=== PATIENT | female | born 1945 | race Two or more races ===

== ENCOUNTER 2019-09-08 21:23 | Inpatient (IN) | payer MEDICARE, OTHER ==
[~2019-09-08] VITALS: Ht 157.5 cm; Wt 56.9 kg
--- NOTE | 2019-09-08 21:25 | NUR ---
PT MAGAN FROM [facility] SENT BY PMD FOR ABN LABS ELEVATED BUN-62, CREATININE-4.06. NAD NOTED. RESP EVEN AND UNLABORED. PT ON MONITOR IN BED 4. WILL CONTINUE TO MONITOR.
--- NOTE | 2019-09-08 21:58 | NUR ---
BLOOD DRAWN AND GIVEN TO PHLEB
[2019-09-08] MEDS ORDERED: IV NS 0.9% 500 ML BAG IV ONE (22:00)
[2019-09-08 22:03] LABS: EOSINOPHILS % (AUTO) 5.2 % (0.0-6.0); HEMATOCRIT 45 % (33-45); HEMOGLOBIN 14.7 g/dL (11.5-14.8); LYMPHOCYTES # (AUTO) 1.1 /CMM (0.8-4.8); LYMPHOCYTES % (AUTO) 25.4 % (20.0-44.0); MEAN CORPUSCULAR HGB CONC 33 g/dl (31.0-36.0); MEAN CORPUSCULAR VOLUME 94 fL (82-100); MONOCYTES # (AUTO) 0.5 /CMM (0.1-1.30); MONOCYTES % (AUTO) 11.7 % (2.0-12.0); NEUTROPHILS # (AUTO) 2.4 /CMM (1.8-8.9); NEUTROPHILS % (AUTO) 56.7 % (43.0-81.0); PLATELET COUNT (AUTO) 209 /CMM (150-450); RED BLOOD CELL COUNT(AUTO) 4.77 MIL/uL (4.0-5.2); WHITE BLOOD COUNT (AUTO) 4.3 K/uL (4.3-11.0)
--- NOTE | 2019-09-08 22:10 | NUR ---
RADIOLOGY AT BEDSIDE FOR XRAY
[2019-09-08 22:18] LABS: ALANINE AMINOTRANSFERASE 11 U/L (12-78); ALBUMIN 2.8 g/dL (3.4-5.0); ALKALINE PHOSPHATASE 77 U/L (46-116); ASPARTATE AMINOTRANSFERASE 17 U/L (15-37); BILIRUBIN,DIRECT 0.1 mg/dL (0.0-0.2); BILIRUBIN,TOTAL 0.4 mg/dL (0.2-1.0); CALCIUM, SERUM 9.9 mg/dL (8.5-10.1); CARBON DIOXIDE 26 mmol/L (21-32); CHLORIDE 107 mmol/L (98-107); CREATININE 4.3 mg/dL (0.6-1.3); GLUCOSE 173 mg/dL (74-106); LIPASE 312 U/L (73-393); POTASSIUM 3.3 mmol/L (3.5-5.1); SODIUM SERUM 146 mmol/L (136-145); TOTAL PROTEIN, SERUM 7.4 g/dL (6.4-8.2); UREA NITROGEN, BLOOD 63 mg/dL (7-18)
--- NOTE | 2019-09-08 22:43 | NUR ---
CALLED SUP FOR MS BED
--- NOTE | 2019-09-08 23:19 | NUR ---
REPORT GIVEN TO SEVEN ANNA FOR ELIANE
[2019-09-08 23:45] VITALS: BP 204/90
--- NOTE | 2019-09-08 23:45 | NUR ---
MS RN NOTES PATIENT RECEIVED FROM ER, VIA HOSPITAL PROTOCOL IN [facility]. PATIENT ALERT AND ORIENTED X 1, MAINLY MACEDONIAN SPEAKING. ON ROOM AIR, NO SIGNS OF SHORTNESS OF BREATH, AND WITH EVEN NON-LABORED BREATHING. PATIENT ON MANAGER BOOKS, SINUS BRADYCARDIA, 58-60'S. PATIENT IV ACCESS INTACT ON LEFT AC, GAUGE 20, DRY, INTACT AND PATENT. PATIENT SKIN DRY, WITH SACRAL REDNESS AND RIGHT LOWER LEG DISCOLORATION. PROVIDED COMFORT MEASURES TO PATIENT. SAFETY PRECAUTIONS IN PLACE WITH BED IN THE LOWEST POSITION, BED LOCKED, BED ALARM ON, BILATERAL SIDE RAILS UP, AND CALL LIGHT WITHIN EASY REACH. WILL CONTINUE TO MONITOR PATIENT.
[2019-09-09] VITALS (7 sets, daily range): BP systolic 139–188; BP diastolic 62–92
[2019-09-09] MEDS ORDERED: ONDANSETRON HCL/PF 4 MG/2 ML VIAL IVP PRN
[2019-09-09] MEDS ORDERED: MAGNESIUM HYDROXIDE 30 ML UDC PO PRN
[2019-09-09] MEDS ORDERED: ZOLPIDEM TARTRATE 5 MG TABLET PO PRN
[2019-09-09] MEDS ORDERED: ACETAMINOPHEN 325 MG TABLET PO PRN
[2019-09-09] MEDS ORDERED: MAG HYDROX/AL HYDROX/SIMETH 30 ML UDC PO PRN
[2019-09-09] MEDS ORDERED: Z GUARD REMEDY 2 OZ OINT TP PRN
[2019-09-09] MEDS: hydrALAZINE HCL IV 20 MG VIAL IV PRN ×2 (00:53→05:46)
--- NOTE | 2019-09-09 00:53 | NUR ---
RN NOTES PT. BLOOD PRESSURE IS 214/98- HYDRALAZINE 10MG IV GIVEN ORDERED
--- NOTE | 2019-09-09 04:30 | NUR ---
RN NOTES K-3.3- MD IS AWARE
[2019-09-09] MEDS ORDERED: DEXT15DR6 EACHEYE (04:41)
[2019-09-09] MEDS ORDERED: EPOE1VIA7 SQ (04:45)
[2019-09-09] MEDS ORDERED: EPOE1VIA7 IJ (04:45)
[2019-09-09] MEDS ORDERED: HYDR-4076 PO (04:49)
[2019-09-09] MEDS ORDERED: FAMO-131 PO (04:50)
[2019-09-09] MEDS ORDERED: VIT1TABL46 PO (04:51)
[2019-09-09] MEDS ORDERED: ACET-2605 PO ×2 (04:52→04:54)
[2019-09-09] MEDS ORDERED: ACET1TAB12 PO (04:56)
[2019-09-09] MEDS ORDERED: CRAN3875 PO (04:57)
[2019-09-09] MEDS ORDERED: ONDA4TAB5 PO (04:58)
[2019-09-09] MEDS ORDERED: OMEG1CAP PO (05:00)
[2019-09-09] MEDS ORDERED: ACET325T53 PO (05:05)
[2019-09-09] MEDS ORDERED: LATA2.5D7 EACHEYE (05:08)
[2019-09-09] MEDS ORDERED: CRAN400C PO (05:09)
--- NOTE | 2019-09-09 05:46 | NUR ---
RN NOTES PT. BLOOD PRESSURE STILL HIGH 192/92 - HYDRALAZINE 10MG IV GIVEN ORDERE
[2019-09-09 06:28] LABS: BASOPHILS % (AUTO) 0.6 % (0.0-2.0); EOSINOPHILS % (AUTO) 4.9 % (0.0-6.0); HEMATOCRIT 46 % (33-45); HEMOGLOBIN 14.7 g/dL (11.5-14.8); LYMPHOCYTES % (AUTO) 20.6 % (20.0-44.0); MEAN CORPUSCULAR HGB CONC 32 g/dl (31.0-36.0); MEAN CORPUSCULAR VOLUME 94 fL (82-100); MONOCYTES # (AUTO) 0.6 /CMM (0.1-1.30); MONOCYTES % (AUTO) 13.2 % (2.0-12.0); NEUTROPHILS # (AUTO) 2.8 /CMM (1.8-8.9); NEUTROPHILS % (AUTO) 60.7 % (43.0-81.0); PLATELET COUNT (AUTO) 199 /CMM (150-450); RED BLOOD CELL COUNT(AUTO) 4.84 MIL/uL (4.0-5.2); WHITE BLOOD COUNT (AUTO) 4.6 K/uL (4.3-11.0)
--- NOTE | 2019-09-09 06:30 | NUR ---
MS RN NOTES PATIENT IN BED RESTING. EASILY AWAKEN BY LIGHT TOUCH AND NAME. ALERT AND ORIENTED X 1. PATIENT ON TRACTOR OPERATOR, WITH NORMAL SINUS RHYTHM, 80S. PATIENT ON ROOM AIR, NO SIGNS OF RESPIRATORY DEPRESSION, NO SIGNS OF SOB, WITH EVEN NON-LABORED BREATHING. PATIENT IV ACCESS IN PLACE, PATENT, DRY AND INTACT. SKIN KEPT CLEAN AND DRY. PROVIDED COMFORT MEASURES TO THE PATIENT. SAFETY PRECAUTIONS IN PLACE WITH BED IN THE LOWEST POSITION, BED ALARM ON, BED LOCKED, BILATERAL SIDE RAILS UP, AND CALL LIGHT WITHIN EASY REACH. WILL ENDORSE ELIANE TO UPCOMING AM NURSE.
[2019-09-09 06:48] LABS: CALCIUM, SERUM 9.9 mg/dL (8.5-10.1); CARBON DIOXIDE 25 mmol/L (21-32); CHLORIDE 110 mmol/L (98-107); CREATININE 4.1 mg/dL (0.6-1.3); GLUCOSE 117 mg/dL (74-106); MAGNESIUM 2.7 mg/dL (1.8-2.4); PHOSPHORUS 4.7 mg/dL (2.5-4.9); POTASSIUM 3.3 mmol/L (3.5-5.1); SODIUM SERUM 145 mmol/L (136-145); UREA NITROGEN, BLOOD 60 mg/dL (7-18)
[2019-09-09] MEDS ORDERED: POLY15DR40 EACHEYE (07:32)
--- NOTE | 2019-09-09 08:01 | NUR ---
RN NOTES RECEIVED PATIENT IN THE BED A/A/O X1/2 IRAQI SPEAKER, REFUSED PAIN, V/S TAKEN BP 188/62, P-74, PATIENT TELE SR-82/83, REFUSED PAIN, NO ACUTE RESPIRATORY DISTRESS, IV ACCESS ON LEFT AC AREA INFUSING 1/2 NS AT 75 ML/HR INTACT, CALL LIGHT WITHIN TO REACH, ASSIST TURN AND REPOSTION Q 2 HR. SAFETY PRECAUTION MAINTAINED ALL THE TIME.
[2019-09-09 08:30] LABS: CHOLESTEROL 181 mg/dL (<200); HDL CHOLESTEROL 43 mg/dL (40-60); LDL 130 mg/dL (0-99); THYROID STIMULATING HORMONE 1.527 uIU/mL (0.358-3.74); TRIGLYCERIDES 84 mg/dL (30-150)
--- NOTE | 2019-09-09 09:26 | NUR ---
rn notes administered zofran 4 mg/ml iv push for nausea and vomiting.
[2019-09-09] MEDS: PANTOPRAZOLE 40 MG TABLET.DR PO SCH (09:32)
--- NOTE | 2019-09-09 11:57 | NUR ---
rn notes patient in the bed. medication were administered for nausea effective, seen by hospitalist.
--- NOTE | 2019-09-09 12:27 | NUR ---
RN NOTE D/C TELE TO MED SURGE PER CEMENT [facility] [address] Dr ARSHAD.
--- NOTE | 2019-09-09 18:00 | NUR ---
RN NOTES UNABLE TO COLLECT URINE AT THIS TIME, PATIENT TOLERATED DINNER WITH ASSIST OF PROCESS WORKER 40%. INFUSING 1/2 NS AT 75 ML/HR INTACT ON LEFT AC AREA., ASSIST TURN AND REPOSTION Q 2 HR, CALL LIGHT WITHIN TO REACH, ENDORSED ONCOMING NURSE FOLLOW PLAN OF CARE.
--- NOTE | 2019-09-09 20:17 | NUR ---
MS RN NOTES PATIENT RECEIVED IN BED LAYING COMFORTABLY, ALERT AND ORIENTED X 1-2, PATIENT MAINLY JAPANESE SPEAKING. ACCOMPANIED BY DAUGHTER AT BEDSIDE, TALISHA. PATIENT ON ROOM AIR, NO SIGNS OF SOB PRESENT, NO SIGNS OF RESPIRATORY DISTRESS, AND WITH EVEN NON-LABORED BREATHING. PATIENT SKIN DRY, WARM, AND INTACT. IV ACCESS ON LEFT AC, 20 GAUGE. PROVIDED COMFORT MEASURES TO PATIENT . SAFETY PRECAUTIONS IN PLACE WITH BED IN THE LOWEST POSITION, BED ALARM ON, BED LOCKED, BILATERAL SIDE RAILS UP, AND CALL LIGHT WITHIN EASY REACH. WILL CONTINUE TO MONITOR PATIENT.
[2019-09-10] MEDS: IV 1/2NS 1000 ML 1,000 ML IV PRN (00:01)
--- NOTE | 2019-09-10 06:18 | NUR ---
MS RN NOTES PATIENT IN BED SLEEPING, AWAKEN BY LIGHT TOUCH AND BY NAME. PATIENT ALERT AND ORIENTED X 1-2. MAINLY JAPANESE SPEAKING. PATIENT ON ROOM AIR WITH NO SIGNS OF RESPIRATORY DEPRESSION PRESENT, NO SHORTNESS OF BREATH, AND EVEN NON-LABORED BREATHING. PATIENT IV ACCESS IN PLACE, INTACT AND PATENT ON LEFT AC 20 GAUGE. PATIENT COMPLAINS AND PRESENTS NO SIGNS OF NO DISCOMFORT OR PAIN. PROVIDED COMFORT MEASURES TO PATIENT. SAFETY PRECAUTIONS IN PLACE WITH THE BED IN THE LOWEST POSITION, BED ALARM ON, BED LOCKED, BILATERAL SIDE RAILS UP, AND CALL LIGHT WITHIN EASY REACH AND REINFORCED TEACHING ON USING CALL LIGHT WHEN IN NEED OF ASSISTANCE. WILL ENDORSE ELIANE TO UPCOMING AM NURSE.
[2019-09-10 06:46] LABS: BASOPHILS % (AUTO) 0.5 % (0.0-2.0); EOSINOPHILS % (AUTO) 3.9 % (0.0-6.0); HEMATOCRIT 43 % (33-45); HEMOGLOBIN 13.8 g/dL (11.5-14.8); LYMPHOCYTES # (AUTO) 1.2 /CMM (0.8-4.8); LYMPHOCYTES % (AUTO) 23.5 % (20.0-44.0); MEAN CORPUSCULAR HGB CONC 32 g/dl (31.0-36.0); MEAN CORPUSCULAR VOLUME 93 fL (82-100); MONOCYTES # (AUTO) 0.5 /CMM (0.1-1.30); MONOCYTES % (AUTO) 9.8 % (2.0-12.0); NEUTROPHILS # (AUTO) 3.3 /CMM (1.8-8.9); NEUTROPHILS % (AUTO) 62.3 % (43.0-81.0); PLATELET COUNT (AUTO) 191 /CMM (150-450); RED BLOOD CELL COUNT(AUTO) 4.56 MIL/uL (4.0-5.2); WHITE BLOOD COUNT (AUTO) 5.2 K/uL (4.3-11.0)
[2019-09-10 07:14] LABS: CALCIUM, SERUM 9.5 mg/dL (8.5-10.1); CARBON DIOXIDE 23 mmol/L (21-32); CHLORIDE 105 mmol/L (98-107); CREATININE 3.9 mg/dL (0.6-1.3); GLUCOSE 101 mg/dL (74-106); MAGNESIUM 2.4 mg/dL (1.8-2.4); PHOSPHORUS 4.9 mg/dL (2.5-4.9); POTASSIUM 3.4 mmol/L (3.5-5.1); SODIUM SERUM 140 mmol/L (136-145); UREA NITROGEN, BLOOD 63 mg/dL (7-18)
--- NOTE | 2019-09-10 07:20 | NUR ---
M/S RN NOTES PATIENT RESTING IN BED, NO RESPIRATORY DISTRESS, NO C/O PAIN AT THIS TIME. PATIENT'S SKIN WARM TO TOUCH, IV ACCESS SITE INTACT AND PATENT ON THE LAC #20G, 1/2 NS INFUSING AT 75ML/HR. PATIENT'S NEEDS ATTENDED, BED ON LOWEST LOCKED POSITION, CALL LIGHT WITHIN REACH. WILL CONTINUE TO MONITOR.
[2019-09-10 07:53] LABS: CREATINE KINASE, TOTAL 31 U/L (26-192)
[2019-09-10 08:00] VITALS: BP 172/91
[2019-09-10] MEDS: PANTOPRAZOLE 40 MG TABLET.DR PO SCH (08:10)
[2019-09-10] MEDS: hydrALAZINE HCL IV 20 MG VIAL IV PRN ×3 (08:11→17:14)
[2019-09-10] MEDS: HYDROCODONE/APAP 5/325MG 1 EACH TABLET PO PRN (15:38)
[2019-09-10 16:00] VITALS: BP 182/95
--- NOTE | 2019-09-10 19:30 | NUR ---
MS RN OPENING NOTE RECEIVED PATIENT IN BED. A/O X1. TOLERATING ROOM AIR. RESPIRATIONS ARE EVEN AND UNLABORED. NO S/S SOB NOTED. NO S/S OF MANIFESTATIONS OF PAIN AT THIS TIME. IN NO APPARENT DISTRESS. IV ACCESS IN RFA#22 PATENT AND SALINE LOCKED. IVF ORDERED BUT NOT CONNECTED D/T ELEVATED BP. WILL REASSESS. BED IS LOW AND LOCKED, HOB ELEVATED IN SEMI FOWLERS, SIDE RIALS UPX2. BED ALARM ON. CALL LIGHT WITHIN REACH. FAMILY AT BEDSIDE. WILL CONTINUE TO MONITOR.
[2019-09-10 20:00] VITALS: BP_SYST 156; BP_DIAS 95; BP_DIAS 98
--- NOTE | 2019-09-10 20:25 | NUR ---
MS RN NOTE CALLED DR. REYNOSO TO COMPLETE MED RECON. WILL CONTINUE TO MONITOR.
[2019-09-11] MEDS: hydrALAZINE HCL IV 20 MG VIAL IV PRN ×2 (05:55→10:36)
--- NOTE | 2019-09-11 05:55 | NUR ---
MS RN NOTE ADMINISTERED PRN HYDRALAZINE 25MG FOR BP 192/110 HR 78. WILL CONTINUE TO MONITOR
--- NOTE | 2019-09-11 06:12 | NUR ---
MS RN CLOSING NOTE PATIENT IN BED. A/O X1. TOLERATING ROOM AIR. RESPIRATIONS ARE EVEN AND UNLABORED. NO SOB NOTED. NO MANIFESTATIONS OF PAIN THROUGHOUT SHIFT. NO DISTRESS NOTED. IV ACCESS MAINTAINED IN RFA#22 PATENT AND SALINE LOCKED. IVF NOT CONNECTED THROUGHOUT SHIFT. ADMINISTERED PRN HYDRALAZINE 25 MG FOR BP 190S/110S. BED REMAINS LOW AND LOCKED, HOB ELEVATED IN SEMI FOWLERS, SIDE RIALS UPX2. BED ALARM ON. CALL LIGHT WITHIN REACH. WILL ENDORSE TO NEXT SHIFT
[2019-09-11 06:51] LABS: BASOPHILS % (AUTO) 0.4 % (0.0-2.0); EOSINOPHILS % (AUTO) 0.9 % (0.0-6.0); HEMATOCRIT 47 % (33-45); HEMOGLOBIN 15.1 g/dL (11.5-14.8); LYMPHOCYTES # (AUTO) 0.8 /CMM (0.8-4.8); LYMPHOCYTES % (AUTO) 12.6 % (20.0-44.0); MEAN CORPUSCULAR HGB CONC 32 g/dl (31.0-36.0); MEAN CORPUSCULAR VOLUME 95 fL (82-100); MONOCYTES # (AUTO) 0.6 /CMM (0.1-1.30); MONOCYTES % (AUTO) 8.5 % (2.0-12.0); NEUTROPHILS % (AUTO) 77.6 % (43.0-81.0); PLATELET COUNT (AUTO) 215 /CMM (150-450); RED BLOOD CELL COUNT(AUTO) 4.98 MIL/uL (4.0-5.2); WHITE BLOOD COUNT (AUTO) 6.5 K/uL (4.3-11.0)
[2019-09-11 07:00] LABS: ALANINE AMINOTRANSFERASE 9 U/L (12-78); ALBUMIN 2.7 g/dL (3.4-5.0); ALKALINE PHOSPHATASE 69 U/L (46-116); ASPARTATE AMINOTRANSFERASE 19 U/L (15-37); BILIRUBIN,TOTAL 0.4 mg/dL (0.2-1.0); CALCIUM, SERUM 10.1 mg/dL (8.5-10.1); CARBON DIOXIDE 22 mmol/L (21-32); CHLORIDE 104 mmol/L (98-107); CREATININE 3.8 mg/dL (0.6-1.3); GLUCOSE 109 mg/dL (74-106); MAGNESIUM 2.2 mg/dL (1.8-2.4); PHOSPHORUS 5.7 mg/dL (2.5-4.9); POTASSIUM 3.3 mmol/L (3.5-5.1); SODIUM SERUM 139 mmol/L (136-145); TOTAL PROTEIN, SERUM 7.5 g/dL (6.4-8.2); UREA NITROGEN, BLOOD 64 mg/dL (7-18)
[2019-09-11 07:03] LABS: CREATINE KINASE, TOTAL 46 U/L (26-192)
[2019-09-11 08:00] VITALS: BP 172/92
--- NOTE | 2019-09-11 08:00 | NUR ---
MS RN OPENING NOTES RECEIVED PATIENT IN BED. A/O X1 ONLY TO SELF. UNABLE TO ANSWER ANY QUESTIONS. SHE DOES NOT SPEAK TO ME. PT IS SY[place] SPEAKING ONLY. BUT MOSTLY NON VERBAL. NO CARDIAC OR RESP DISTRESS NOTED. TOLERATING ROOM AIR. RESPIRATIONS ARE EVEN AND UNLABORED. NO S/S SOB NOTED. NO S/SX OF PAIN OR DISCOMFORT. IN NO APPARENT DISTRESS. IV ACCESS IN RFA#22 PATENT AND SALINE LOCKED. IVF ORDERED BUT NOT CONNECTED D/T ELEVATED BP. CHECKED BP AT 8AM. 170/92. WILL REASSESS AND RECHECK MANUALLY. PER NIGHT NURSE, HYDRALAZINE WAS GIVEN AROUND 7AM. WILL RECHECK BP LATER. SAFETY PRECAUTIONS IN PLACE. BED IS LOW AND LOCKED, HOB ELEVATED IN SEMI FOWLERS, SIDE RIALS UPX2. BED ALARM ON. CALL LIGHT WITHIN REACH. FAMILY AT BEDSIDE. WILL CONTINUE TO MONITOR.
[2019-09-11 08:07] LABS: PTH, INTACT 102 pg/mL (15-65)
[2019-09-11] MEDS: PANTOPRAZOLE 40 MG TABLET.DR PO SCH (08:14)
--- NOTE | 2019-09-11 09:30 | NUR ---
NOTIFIED RE: K+ LEVELS NOTIFIED DR. ADAIR RE: K+ LEVEL 3.3. KDUR 40MEQ ORDERED. NOTED AND CARRIED OUT.
--- NOTE | 2019-09-11 09:45 | NUR ---
RECHECKED BP RECHECKED BP MANUALLY. NOTED TO BE 169/82. IMPROVED FROM JULIETTE BALTAZAR
--- NOTE | 2019-09-11 10:30 | NUR ---
RECHECKED BP 168/88 HYDRALAZINE 25MG IVP ADMINISTERED.
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
[2019-09-11] MEDS ORDERED: POTASSIUM CHLORIDE 20 MEQ TAB.PRT.SR PO ONE (11:00)
[2019-09-11 11:23] VITALS: BP 168/88
[2019-09-11 12:19] LABS: APPEARANCE,URINE CLEAR (CLEAR); BILIRUBIN,URINE NEGATIVE (NEGATIVE); BLOOD, URINE NEGATIVE Ery/uL (NEGATIVE); COLOR,URINE YELLOW (YELLOW); KETONES,URINE NEGATIVE (NEGATIVE); LEUKOCYTE ESTERASE ,URINE NEGATIVE (NEGATIVE); NITRITE, URINE NEGATIVE (NEGATIVE); PROTEIN,URINE 100 mg/dl (NEGATIVE); UGLUCOSE 100 MG/DL mg/dL (NEGATIVE); UROBILINOGEN,URINE 0.2 EU/dL (0.2)
[2019-09-11 12:27] LABS: RBC,URINE NONE SEEN /HPF (0-2); WBC,URINE 0-2 /HPF (0-3)
[2019-09-11 12:28] LABS: BACTERIA,URINE Rare /HPF (None Seen); SQUAMOUS EPITHELIAL CELL,UR Few /HPF (None Seen)
[2019-09-11 12:44] LABS: EOSINOPHIL,URINE None Seen
[2019-09-11 13:04] LABS: CREATININE, URINE 46.4 MG/DL (30.0-125.0); URINE TOTAL PROTEIN 159.6 mg/dL (0-11.9)
[2019-09-11 16:04] VITALS: BP 150/84
[2019-09-11] MEDS: hydrALAZINE HCL 25 MG TABLET PO SCH (16:33)
--- NOTE | 2019-09-11 17:29 | NUR ---
S/P CT OF HEAD W/O CONTRAST PT CAME BACK TO UNIT S/P CT OF HEAD WITHOUT CONTRASST
--- NOTE | 2019-09-11 17:45 | NUR ---
MS RN CLOSING NOTES PATIENT IN BED. A/O X1 ONLY TO SELF. PT IS NON VERBAL. BUT MOSTLY NON VERBAL. NO CARDIAC OR RESP DISTRESS NOTED. TOLERATING ROOM AIR. RESPIRATIONS ARE EVEN AND UNLABORED. NO S/S SOB NOTED. NO S/SX OF PAIN OR DISCOMFORT. IN NO APPARENT DISTRESS. PT BP CONTINOUSLY MONITORED THROUGHOUT THIS SSHIFT. LAST BP TAKEN AROUND 530 WASS 150/84. IMPROVING AND MUCH BETTER. PO HYDRALAZINE ADMINISTERED. IV ACCESS IN RFA#22 PATENT AND SALINE LOCKED. PT ALSO WENT FOR CT OF HEAD WITHOUT CONTRAST AWAITING FOR RESULTS. SAFETY PRECAUTIONS IN PLACE. BED IS LOW AND LOCKED, HOB ELEVATED IN SEMI FOWLERS, SIDE RIALS UPX2. BED ALARM ON. CALL LIGHT WITHIN REACH. FAMILY AT BEDSIDE. WILL CONTINUE TO MONITOR.
--- NOTE | 2019-09-11 18:15 | NUR ---
CT OF HEAD RESULT RECEIVED CALL FROM RADIOLOGY REGARDING CT OF HEAD RESULTS. NOTIED DR BEVERLEY ADAIR.
--- NOTE | 2019-09-11 18:26 | NUR ---
AWARE OF CT OF HEAD RESULTS DR ADAIR AWARE.
--- NOTE | 2019-09-11 19:30 | NUR ---
MS RN OPENING NOTE RECEIVED PATIENT IN BED. A/O X1. TOLERATING ROOM AIR. RESPIRATIONS ARE EVEN AND UNLABORED. NO S/S SOB NOTED. NO S/S OF MANIFESTATIONS OF PAIN AT THIS TIME. IN NO APPARENT DISTRESS. IV ACCESS IN RFA#22 RUNNING 1/2 NS@75ML/HR. BED IS LOW AND LOCKED, HOB ELEVATED IN SEMI FOWLERS, SIDE RIALS UPX2. BED ALARM ON. CALL LIGHT WITHIN REACH. FAMILY AT BEDSIDE. WILL CONTINUE TO MONITOR.
[2019-09-11 20:00] VITALS: BP 149/80
[2019-09-11] MEDS ORDERED: LATANOPROST EYE DROP 0.005% 2.5 ML BOTTLE EACHEYE SCH (22:00)
[2019-09-11] MEDS: IV 1/2NS 1000 ML 1,000 ML IV PRN (22:01)
[2019-09-12] MEDS: hydrALAZINE HCL IV 20 MG VIAL IV PRN ×2 (04:09→11:23)
--- NOTE | 2019-09-12 04:10 | NUR ---
MS RN NOTE ADMINISTERED PRN APRESOLINE 25MG FOR BP 185/105 HR 92. WILL CONTINUE TO MONITOR.
--- NOTE | 2019-09-12 06:14 | NUR ---
MS SEVEN DOUGLAS NOTE PATIENT IN BED. A/O X1. REMAINS TOLERATING ROOM AIR. RESPIRATIONS ARE EVEN AND UNLABORED. NO SOB NOTED. NO MANIFESTATIONS OF PAIN THROUGHOUT SHIFT. NO DISTRESS NOTED. IV ACCESS MAINTAINED IN RFA#22 RUNNING 1/2 NS@75ML/HR. BED IS LOW AND LOCKED, HOB ELEVATED IN SEMI FOWLERS, SIDE RIALS UPX2. BED ALARM ON. CALL LIGHT WITHIN REACH. WILL ENDORSE TO NEXT SHIFT
[2019-09-12 06:37] LABS: BASOPHILS % (AUTO) 0.5 % (0.0-2.0); HEMATOCRIT 46 % (33-45); HEMOGLOBIN 14.6 g/dL (11.5-14.8); LYMPHOCYTES % (AUTO) 15.3 % (20.0-44.0); MEAN CORPUSCULAR HGB CONC 32 g/dl (31.0-36.0); MEAN CORPUSCULAR VOLUME 94 fL (82-100); MONOCYTES # (AUTO) 0.6 /CMM (0.1-1.30); MONOCYTES % (AUTO) 8.6 % (2.0-12.0); NEUTROPHILS # (AUTO) 4.8 /CMM (1.8-8.9); NEUTROPHILS % (AUTO) 71.6 % (43.0-81.0); PLATELET COUNT (AUTO) 210 /CMM (150-450); RED BLOOD CELL COUNT(AUTO) 4.87 MIL/uL (4.0-5.2); WHITE BLOOD COUNT (AUTO) 6.7 K/uL (4.3-11.0)
[2019-09-12 07:05] LABS: ALANINE AMINOTRANSFERASE 11 U/L (12-78); ALBUMIN 2.6 g/dL (3.4-5.0); ALKALINE PHOSPHATASE 68 U/L (46-116); ASPARTATE AMINOTRANSFERASE 18 U/L (15-37); BILIRUBIN,TOTAL 0.5 mg/dL (0.2-1.0); CARBON DIOXIDE 20 mmol/L (21-32); CHLORIDE 103 mmol/L (98-107); CREATININE 3.6 mg/dL (0.6-1.3); GLUCOSE 122 mg/dL (74-106); MAGNESIUM 2.3 mg/dL (1.8-2.4); PHOSPHORUS 4.3 mg/dL (2.5-4.9); POTASSIUM 3.5 mmol/L (3.5-5.1); SODIUM SERUM 138 mmol/L (136-145); TOTAL PROTEIN, SERUM 7.1 g/dL (6.4-8.2); UREA NITROGEN, BLOOD 71 mg/dL (7-18)
[2019-09-12] MEDS ORDERED: FAMOTIDINE (20 MG) 20 MG TABLET PO SCH (07:30)
--- NOTE | 2019-09-12 08:01 | NUR ---
MS RN OPENING NOTE RECEIVVED PATIENT IN BED. A/O X1 ONLY TO SELF. PT IS NON VERBAL. NO CARDIAC OR RESP DISTRESS NOTED. TOLERATING ROOM AIR. RESPIRATIONS ARE EVEN AND UNLABORED. NO S/S SOB NOTED. NO S/SX OF PAIN OR DISCOMFORT. IV ACCESS NOTED IN RFA#22. INTACT AND PATENT.NO S/SX OF INFECTION OR INFILTRATION NOTED. IV FLUIDS RUNNING 1/2 NS @ 75ML/HR. SAFETY PRECAUTIONS IN PLACE. BED IS LOW AND LOCKED, HOB ELEVATED IN SEMI FOWLERS, SIDE RIALS UPX2. BED ALARM ON. CALL LIGHT WITHIN REACH. WILL CONTINUE TO MONITOR.
[2019-09-12] MEDS: PANTOPRAZOLE 40 MG TABLET.DR PO SCH (08:19)
[2019-09-12] MEDS: hydrALAZINE HCL 25 MG TABLET PO SCH ×2 (08:24→16:48)
[2019-09-12 09:00] VITALS: BP 159/89
[2019-09-12] MEDS: HYDROCODONE/APAP 5/325MG 1 EACH TABLET PO PRN ×2 (11:23→16:49)
[2019-09-12] MEDS ORDERED: ASPI-1152 PO (12:18)
[2019-09-12 16:00] VITALS: BP 160/75
[2019-09-12 16:48] VITALS: BP 160/75
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
[2019-09-13 08:06] LABS: PTH, INTACT 107 pg/mL (15-65)
[2019-09-13 08:06] LABS: *SPE A/G RATIO 0.9 (0.7-1.7); *SPE ALBUMIN 2.8 g/dL (2.9-4.4); *SPE ALPHA-1-GLOBULIN 0.2 g/dL (0.0-0.4); *SPE ALPHA-2-GLOBULIN 0.8 g/dL (0.4-1.0); *SPE BETA GLOBULIN 1.1 g/dL (0.7-1.3); *SPE GLOBULIN, TOTAL 3.2 g/dL (2.2-3.9); *SPE M-SPIKE Not Observed g/dL (Not Observed); *SPEGAMMA GLOBULIN 1.1 g/dL (0.4-1.8)
[2019-09-13 11:11] LABS: *SPE A/G RATIO 0.8 (0.7-1.7); *SPE ALBUMIN 2.9 g/dL (2.9-4.4); *SPE ALPHA-1-GLOBULIN 0.2 g/dL (0.0-0.4); *SPE ALPHA-2-GLOBULIN 0.9 g/dL (0.4-1.0); *SPE BETA GLOBULIN 1.3 g/dL (0.7-1.3); *SPE GLOBULIN, TOTAL 3.8 g/dL (2.2-3.9); *SPE M-SPIKE Not Observed g/dL (Not Observed); *SPEGAMMA GLOBULIN 1.4 g/dL (0.4-1.8)
[2019-09-13] MEDS ORDERED: EPOETIN ALFA (10,000 UNIT) 10,000 UNIT/ML VIAL SQ SCH (15:00)
== END 2019-09-12 18:30 | DRG 682 ==
LOC: ER 21:23 → MED 23:06 → TELE 23:26 → MED 09-09 14:53
PROVIDERS: ADMIT Student in an Organized Health Care Education/Training Program; ATTEND Nurse Practitioner Acute Care
DX: I12.9 Hypertensive chronic kidney disease with stage 1 through stage 4 chronic kidney disease, or unspecified chronic kidney disease (principal); N17.0 Acute kidney failure with tubular necrosis; I62.03 Nontraumatic chronic subdural hemorrhage; E44.0 Moderate protein-calorie malnutrition; G93.40 Encephalopathy, unspecified; E87.0 Hyperosmolality and hypernatremia; N18.5 Chronic kidney disease, stage 5; R47.01 Aphasia; G81.91 Hemiplegia, unspecified affecting right dominant side; K59.00 Constipation, unspecified; E86.0 Dehydration; I25.10 Atherosclerotic heart disease of native coronary artery without angina pectoris; E03.9 Hypothyroidism, unspecified; D63.8 Anemia in other chronic diseases classified elsewhere; E87.6 Hypokalemia; Z91.81 History of falling; R26.9 Unspecified abnormalities of gait and mobility; N25.0 Renal osteodystrophy
CPT/HCPCS: 36415; 70450-TC; 71045-TC; 76770-TC; 80048-TC; 80053-TC; 80061-TC; 80076-TC; 81000-TC; 82550-TC; 82570-TC; 83690-TC; 83735-TC; 83970; 84100-TC; 84155; 84155-TC; 84165; 84300-TC; 84443-TC; 85025-TC; 87081-TC; 97110-TC; 97112-TC; 97530-TC; G0378; J0360; J2405; J3490; J7040